=== PATIENT | female | born 1965 ===

== ENCOUNTER → 2016-06-02 | Day surgery (SDC) | payer BC ==
[~2016-06-02] MED LIST: BUPIVACAINE/EPINEPHRINE 0.25% 50 ML VIAL ONE; KETOROLAC TROMETHAMINE 30 MG/ML (IVP) VIAL IV PUSH ONE; LACTATED RINGER'S 1,000 ML BAG IV ONE; LACTATED RINGER'S 1000 ML INJ 1,000 ML ONE; MEPERIDINE HCL 25 MG/ML VIAL ONE; METHYLENE BLUE 100 MG/10 ML VIAL ONE; MIDAZOLAM HCL 2 MG/2 ML VIAL ONE; ONDANSETRON HCL 4 MG/2 ML VIAL IV PUSH ONE; PROPOFOL 200 MG/20 ML AMP IV ONE; ceFAZolin 2 GM PREMIX 50 ML ONE; oxyCODONE/ACETAMINOPHEN 5 MG/325 MG TAB ONE
--- NOTE | 2016-06-02 00:10 | HHI.HP ---
HPI Chief Complaint Irregular cycles, menorrhagia, fibroids, pelvic pain Date Seen: Jun 02, 2016 Travel History International Travel<30 Days: No Contact w/Intl Traveler<30Days: No Known Affected Area: No History of Present Illness HPI Patient has developed abnormal uterine bleeding. Her gynecological evaluation revealed fibroids. She has requested definitive surgical treatment. Para: 2 : 3 Miscarriage: 1 : 0 History Past Medical History Narrative Medical Depression Anxiety Hyperlipidemia Obstetric History Obstetric History 3 pregnancies, 1 miscarriage, 2 deliveries Past Surgical History Narrative Surgical 2000 -- deliveries 2015 -- hysteroscopy, polypectomy, D&C Family History Narrative Family History Mother -- heart disease, HTN Social History Alcohol Use: No Tobacco Use: No Substance Abuse: No Allergies-Medications (Allergen,Severity, Reaction): Coded Allergies: No Known Allergies (Unverified , 09/02/15) Review of Systems General / Constitutional: No: Fever, Weight Gain, Chills, Other Eyes: No: Diploplia, Blurred Vision, Visual changes, Pain, Photophobia HENT: No: Headaches, Vertigo, Lightheadedness Cardiovascular: No: Irregular Rhythm, Chest Pain or Discomfort, Palpitations, Tachycardia, Syncope, Varicosities, Edema, Cyanosis Respiratory: No: Cough, Short of Breath, Other Gastrointestinal: No: Nausea, Vomiting, Diarrhea Genitourinary: Pelvic Pain, Menorrhagia, Vaginal Bleeding, No: Decreased Urinary Output, Oliguria Musculoskeletal: No: Limited ROM, Weakness, Cramping, Edema, Pain Skin: No Rash, No Itching, No Dryness, No Lumps, No Change in Pigmentation, No Change in Nails, No Alopecia, No Lesions Neurologic: No: Weakness, Dizziness, Syncope, Focal Abnormalities, Coordination Problem, Headache, Slurred Speech, Seizures Psychiatric: No: Depression, Suicidal Ideations, Homicidal Ideation Endocrine: No: Heat Intolerance, Cold Intolerance, Polydipsia, Polyuria, Other Physical Exam Narrative GENERAL: Well-nourished, well-developed patient. SKIN: Warm and dry. HEAD: Normocephalic and atraumatic. EYES: No scleral icterus. No injection or drainage. ENT: No nasal drainage noted. Mucous membranes pink. Airway patent. NECK: Supple, trachea midline. No JVD. CARDIOVASCULAR: Regular rate and rhythm without murmurs, gallops, or rubs. RESPIRATORY: Breath sounds equal bilaterally. No accessory muscle use. BREASTS: Bilateral exam showed no masses , no retractions, no nipple discharge. ABDOMEN/GI: Abdomen soft, non-tender, bowel sounds present, no rebound, no guarding GENITOURINARY: External Genitalia: intact and normal in appearance uterus -- enlarged, no adnexal masses EXTREMITIES: No cyanosis or edema. BACK: Nontender without obvious deformity. No CVA tenderness. NEUROLOGICAL: Awake and alert. Motor and sensory grossly within normal limits. Five out of 5 muscle strength in all muscle groups. Normal speech. Data Data Vital Signs Reviewed: Yes Assessment/Plan Problem List: (1) Menorrhagia with irregular cycle (2) Fibroids, submucosal (3) Other specified irregular menstruation (4) Pelvic pain syndrome Assessment and Plan 1. admit for supracervical hysterectomy, bilateral salpingo-oophorectomy 2. discussed the R/B/A of the procedure: bleeding, infection, damage to internal organs (bowel, bladder, nerves, ureters, vessels) as well damage to vaginal rice 3, discussed the R/B/A of leaving the ovaries in situ vs. surgical menopause; patient wishes to have ovaries removed 4. informed consent was obtained after patient's questions were answered; she verbalized understanding Amie Decker MD Jun 02, 2016 00:10
--- NOTE | 2016-06-02 06:22 | PD.OP ---
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 LSCH 2. BSO 3. extensive lysis of abdominal adhesions Anesthesia: General Surgeon: Amie Decker [employer] Worker(s): Staff Operation and Findings: IVF: 1200 ml LR + IV antibiotics given prior to surgery + Methylene blue given during surgery UO: 100 ml EBL: 150 ml Findings: 1. extensive abdominal adhesions involving bowel and the abdominal rice 2. extensive pelvic adhesions involving adnexa, bowel and uterus 3. normal ovaries and tubes 4. enlarged fibroid uterus Complications: none Condition: stable Disposition: PACU Descriptions of the procedure: I discussed the risks, benefits and alternatives of the procedure with the patient. Informed consent was obtained after questions were answered. She was then taken to the operating room with her IV running. She was placed in the supine position and was given general anesthesia without difficulties or complications. She was then placed in the dorsal lithotomy position and was prepped and draped in the usual sterile fashion. Attention was first turned to the patient's genital area. A bivalved speculum was introduced inside the patient's vagina. The anterior aspect of the cervix was grasped with a single tooth tenaculum for manipulation. The cervix was carefully dilated, electrocauterized with the Bovie and a uterine manipulator was carefully introduced inside the uterus. The genital area was then covered with a sterile blue towel. The surgeon changed gloves and attention was the turned to the patient's abdomen. A vertical umbilical incision was made with the scalpel. A 5 mm trocar with introduced inside the patient's abdomen under direct visualization. A pneumo-peritoneum was created with CO2 gas. Two 5 mm trocars and one 10 mm trocar were introduced inside the patient's abdomen under direct visualization in the lower right, mid, and left abdomen. A survey of the patient's abdomen revealed extensive adhesions involving the bowel and abdominal rice. Extensive lysis of adhesions was needed in order to return anatomy to normal. The same was needed in the pelvis in order to perform the surgery. The round ligaments and the infundibulopelvic ligaments were serially grasped, electrocauterized and transected with the Thunderbeat scalpel. Excellent hemostasis was noted. The tissues along the uterus on both sides were serially grasped, electrocauterized and transected with the Thunderbeat scalpel. The ureters were noted to be away from the surgical site. The uterine vessels were skeletonized, electrocauterized and transected with the Thunderbeat scalpel. Good hemostasis was noted. The uterine manipulator was removed. The cervix was transected at the cervico-uterine junction with the Destinee loop. Good hemostasis was noted. The endocervix was electrocauterized with the Harmonic scalpel. The morcellator was placed inside the patient's abdomen under direct visualization. The uterus, ovaries and fallopian tube were carefully dissected, removed from the abdomen and sent to pathology. Care was taken to remove all of the small pieces of tissue left in the abdomen and pelvis. Copious irrigation was done. All surgical sites were noted to be hemostatic. A piece of interseed was placed over the cervix. All instruments were removed from patient's abdomen. The trocars were removed under direct visualization and the sites were noted to be hemostatic. The CO2 gas was carefully expressed out of the patient's abdomen. The fascia under the 10 mm incision was reapproximated with a figure eight stitch of 0-Vicryl. The subcutaneous tissues were injected with 0.5 % Marcaine. The skin incisions were reapproximated with subcutaneous stitches using 4-0 Vicryl. Mastisol and steri strips were placed over the incisions. The patient tolerated the procedure well. She was successfully extubated and transferred to PACU in stable condition. NOTE:I was not able to discuss the surgical procedures and surgical findings with patient's because he was not available in the waiting room. I did leave a voicemail in his phone. Amie Decker MD Jun 02, 2016 06:22
== END | disposition home or self-care (01) ==
LOC: ESDC 06:20
PROVIDERS: ATTEND Obstetrics & Gynecology
DX: N92.1 Excessive and frequent menstruation with irregular cycle (principal); D25.9 Leiomyoma of uterus, unspecified; R10.2 Pelvic and perineal pain
CPT/HCPCS: 00840; 58542; 88307; C1765; J0690; J1885; J2175; J2250; J2405; J3010; J7120